=== PATIENT | male | born 1985 | race Two or more races ===

== ENCOUNTER 2021-10-30 21:31 | Emergency (ER) | payer OTHER ==
[2021-10-30 21:37] VITALS: TEMP 98.9; BMI 24.5
[2021-10-30] MEDS ORDERED: MAG HYDROX/AL HYDROX/SIMETH -MYLANTA- ORAL SUSPENSION PO ONE (23:11)
[2021-10-30] MEDS ORDERED: FAMOTIDINE 20 MG TABLET PO ONE (23:11)
[2021-10-30] MEDS ORDERED: ONDANSETRON 4 MG TABLET PO ONE (23:11)
[2021-10-30] MEDS ORDERED: FAMOTIDINE 20 MG TABLET ONE (23:44)
[2021-10-30] MEDS ORDERED: ONDANSETRON *ODT* 4 MG TABLET ONE (23:45)
[2021-10-30] MEDS ORDERED: MAG HYDROX/AL HYDROX/SIMETH 30 ML UNIT-DOSE CUP ONE (23:45)
[2021-10-31 01:37] VITALS: BP 127/80; PULSE 70
== END 2021-10-31 01:38 | disposition home or self-care (01) ==
LOC: JER 21:31
DX: U07.1 COVID-19 (principal); R11.2 Nausea with vomiting, unspecified
CPT/HCPCS: 82962; 93005; 93010; 99284-25